=== PATIENT | male | born 1960 | race African-American/Black ===

== ENCOUNTER → 2020-05-03 | Emergency (ER) | payer MEDICARE, MEDICAID ==
[~2020-05-03] VITALS: Ht 180.3 cm; Wt 81.6 kg
[2020-05-03 21:03] LABS: Basophils # (auto) 0.1 10 ^3/uL (0-0.2); Basophils % (auto) 1.3 % (0.0-2.0); Eosinophils # (auto) 0.1 10 ^3/uL (0-0.8); Eosinophils % (auto) 2.4 % (0.0-7.0); Hemoglobin 11.1 g/dL (13.5-17.5); Lymphocytes # (auto) 1.5 10 ^3/uL (0.4-5.4); Lymphocytes % (auto) 37.7 % (10.0-50.0); Mean Corpuscular Hgb Conc. 32.6 g/dL (32.0-36.0); Mean Corpuscular Volume 92.1 fL (80.0-100.0); Monocytes # (auto) 0.5 10 ^3/uL (0-1.3); Monocytes % (auto) 12.9 % (0.0-12.0); Neutrophils # (auto) 1.9 10 ^3/uL (1.6-8.6); Neutrophils % (auto) 45.7 % (37.0-80.0); Nucleated Red Blood Cells % 0.1 %; Platelet Count (auto) 312 10^3/uL (140-450); White Blood Cell 4.1 10^3/uL (4.4-10.8)
[2020-05-03 21:04] LABS: Red Cell Distribution Width 21.8 % (11.8-14.3)
[2020-05-03 21:27] LABS: Albumin 3.8 g/dL (3.4-5.0); BUN/Creatinine Ratio 18.1; Calcium 8.1 mg/dL (8.5-10.1); Potassium 4.1 mmol/L (3.5-5.1)
[2020-05-03 21:29] LABS: Bilirubin, Total 0.4 mg/dL (0.2-1.0); Total Protein 8.1 g/dL (6.4-8.2)
[2020-05-04 04:43] VITALS: BP 144/68
== END | disposition home or self-care (01) ==
LOC: ER 19:45
DX: F10.129 Alcohol abuse with intoxication, unspecified (principal); I10 Essential (primary) hypertension; F12.10 Cannabis abuse, uncomplicated; Z59.0 Homelessness; Y90.9 Presence of alcohol in blood, level not specified
CPT/HCPCS: 36415; 80053; 80320; 85025

== ENCOUNTER 2020-09-02 13:49 | Inpatient (IN) | payer OTHER, MEDICAID ==
[~2020-09-02] VITALS: Ht 175.3 cm; Wt 72.8 kg
[2020-09-02 14:27] LABS: Basophils # (auto) 0 10 ^3/uL (0-0.2); Eosinophils # (auto) 0.1 10 ^3/uL (0-0.8); Eosinophils % (auto) 2.3 % (0.0-7.0); Hematocrit 35.3 % (41.0-53.0); Hemoglobin 11.2 g/dL (13.5-17.5); Lymphocytes # (auto) 1.2 10 ^3/uL (0.4-5.4); Lymphocytes % (auto) 30.4 % (10.0-50.0); Mean Corpuscular Hemoglobin 30.8 pg (28.0-32.0); Mean Corpuscular Hgb Conc. 31.8 g/dL (32.0-36.0); Mean Corpuscular Volume 96.8 fL (80.0-100.0); Monocytes # (auto) 0.4 10 ^3/uL (0-1.3); Neutrophils # (auto) 2.2 10 ^3/uL (1.6-8.6); Neutrophils % (auto) 56.3 % (37.0-80.0); Nucleated Red Blood Cells % 0.1 %; Platelet Count (auto) 336 10^3/uL (140-450); Red Blood Cells 3.65 10^6/uL (4.5-5.90); Red Cell Distribution Width 17.6 % (11.8-14.3)
[2020-09-02 14:28] LABS: Urine Bacteria FEW /hpf (None Seen); Urine Blood Negative /uL (Negative); Urine Specific Gravity 1.016 (1.001-1.035); Urine WBC 1 /hpf (0 - 3)
[2020-09-02 14:43] LABS: Albumin 4.4 g/dL (3.4-5.0); Anion Gap 10 (5-15); Blood Alcohol < 3.0 mg/dL (0-5); Blood Urea Nitrogen 12 mg/dL (7-18); Carbon Dioxide 22 mmol/L (21-32); Chloride 105 mmol/L (98-107); Glucose 77 mg/dL (74-106); Potassium 3.8 mmol/L (3.5-5.1); Sodium 137 mmol/L (136-145)
[2020-09-02 14:46] LABS: Alanine Aminotransferase 27 U/L (16-61); Alkaline Phosphatase 84 U/L (45-117); Aspartate Aminotransferase 32 U/L (15-37); BUN/Creatinine Ratio 10.8; Bilirubin, Total 0.5 mg/dL (0.2-1.0); GFR African American 87 mL/min; GFR Non-African American 72 mL/min; Total Protein 8.6 g/dL (6.4-8.2)
[2020-09-02 14:48] LABS: Amphetamine Screen, Urine POSITIVE (NEGATIVE); Barbiturate Scree,Urine NEGATIVE (NEGATIVE); Benzodiazephine Screen, Urine POSITIVE (NEGATIVE); Cannabinoid Screen, Urine POSITIVE (NEGATIVE); Cocaine Screen, Urine NEGATIVE (NEGATIVE); Opiate Scree,Urine NEGATIVE (NEGATIVE); Phencyclidine Screen, Urine NEGATIVE (NEGATIVE)
[2020-09-02] MEDS ORDERED: FOLIC ACID 1 MG, MULTIPLE VITAMIN 10 ML, MAGNESIUM SULF SDV 50% 8 MEQ, THIAMINE INJ 100... INJ STA ×5 (14:58)
[2020-09-02] MEDS ORDERED: ONDANSETRON HCL 4 MG/2 ML VIAL IV ONE (15:00)
[2020-09-02] MEDS ORDERED: SODIUM CHLORIDE 0.9% 1,000 ML IVB ONE (15:00)
[2020-09-02] MEDS ORDERED: THIAMINE 100mg/ml INJ (200mg/2ml VIAL) IV ONE (15:00)
[2020-09-02 15:56] LABS: Magnesium 1.6 mg/dL (1.6-2.6)
[2020-09-02] MEDS: hydrALAZINE HCL 25 MG TAB PO SCH (23:20)
[2020-09-02] MEDS: amLODIPine BESYLATE 5 MG TAB PO SCH (23:20)
[2020-09-03] MEDS ORDERED: DOCUSATE SOD 100 MG CAP PO PRN (00:15)
[2020-09-03] MEDS ORDERED: ONDANSETRON HCL 4 MG/2 ML VIAL IV PRN (00:15)
[2020-09-03] MEDS ORDERED: ACETAMINOPHEN 325 MG TAB PO PRN (00:15)
[2020-09-03] MEDS ORDERED: NITROGLYCERIN 0.4 MG SL TAB SL PRN (00:15)
[2020-09-03] MEDS ORDERED: MORPHINE SULF INJ 2 MG/ML SYRINGE 1ML IV PRN (00:15)
[2020-09-03] MEDS: SODIUM CHLORIDE 0.9% 1,000 ML IV SCH ×2 (00:32→16:04)
[2020-09-03] MEDS: hydrALAZINE HCL 25 MG TAB PO SCH ×3 (06:00→22:10)
[2020-09-03 08:31] LABS: Basophils # (auto) 0 10 ^3/uL (0-0.2); Basophils % (auto) 0.9 % (0.0-2.0); Eosinophils # (auto) 0.1 10 ^3/uL (0-0.8); Eosinophils % (auto) 2.6 % (0.0-7.0); Hematocrit 33.7 % (41.0-53.0); Hemoglobin 11.1 g/dL (13.5-17.5); Lymphocytes # (auto) 0.9 10 ^3/uL (0.4-5.4); Lymphocytes % (auto) 21.3 % (10.0-50.0); Mean Corpuscular Hemoglobin 31.7 pg (28.0-32.0); Mean Corpuscular Hgb Conc. 32.9 g/dL (32.0-36.0); Mean Corpuscular Volume 96.3 fL (80.0-100.0); Monocytes # (auto) 0.4 10 ^3/uL (0-1.3); Monocytes % (auto) 9.3 % (0.0-12.0); Neutrophils # (auto) 2.6 10 ^3/uL (1.6-8.6); Neutrophils % (auto) 65.9 % (37.0-80.0); Platelet Count (auto) 257 10^3/uL (140-450); Red Cell Distribution Width 17.5 % (11.8-14.3)
--- NOTE | 2020-09-03 09:00 | NUR ---
Telemetry admit from [facility] admitted to Telemetry unit after SBAR received. Patient oriented to ELY lilly RN, unit, room 291 A and unit policies regarding patient care and visiting hours. Patient now on continuous telemetry monitoring, tele box # 49 and telemetry reading on arrival to unit is SR 89. Patient weighed by bedscale and encouraged to call if they need something. All questions and concerns addressed, patient verbalized understanding. POM taken to pharmacy
[2020-09-03 09:10] LABS: Albumin 3.6 g/dL (3.4-5.0); Calcium 8.3 mg/dL (8.5-10.1); Potassium 3.8 mmol/L (3.5-5.1)
[2020-09-03 09:13] VITALS: BP 145/84
[2020-09-03 09:14] LABS: Bilirubin, Total 0.6 mg/dL (0.2-1.0); Total Protein 6.9 g/dL (6.4-8.2)
[2020-09-03] MEDS: amLODIPine BESYLATE 5 MG TAB PO SCH (09:38)
[2020-09-03] MEDS: FOLIC ACID 1 MG TAB PO SCH (09:38)
[2020-09-03] MEDS: PANTOPRAZOLE 40 MG/10 ML VIAL INJ IV SCH (09:38)
[2020-09-03] MEDS: THIAMINE HCL 100 MG TAB PO SCH (09:38)
[2020-09-03] MEDS: ENOXAPARIN SOD 40 MG/0.4 ML SYRINGE SC SCH (09:39)
[2020-09-03] MEDS: HYDROcodone-ACET 5/325MG TAB PO PRN ×2 (09:39→18:22)
[2020-09-03] MEDS ORDERED: AML5T PO (12:48)
[2020-09-03] MEDS ORDERED: TRAZ50TA2 PO (12:48)
[2020-09-03] MEDS ORDERED: LISI-646 PO (12:48)
[2020-09-03] MEDS ORDERED: MULT-470 OR (12:48)
[2020-09-03 14:47] VITALS: BP 151/80
--- NOTE | 2020-09-03 15:55 | NUR ---
Sharon KO AT BEDSIDE updated on the patient status, Plan of care was discussed with the patient and he verbalized understanding. New orders received for clear liquid diet. Order read back and verified.
[2020-09-03 16:53] VITALS: BP 143/84
[2020-09-03 22:15] VITALS: BP 143/82
[2020-09-04 05:30] VITALS: BP 148/79
[2020-09-04] MEDS: hydrALAZINE HCL 25 MG TAB PO SCH ×4 (05:55→22:19)
[2020-09-04 06:55] LABS: Basophils # (auto) 0 10 ^3/uL (0-0.2); Basophils % (auto) 0.5 % (0.0-2.0); Eosinophils # (auto) 0.2 10 ^3/uL (0-0.8); Eosinophils % (auto) 4.3 % (0.0-7.0); Hematocrit 37.9 % (41.0-53.0); Lymphocytes % (auto) 22.7 % (10.0-50.0); Mean Corpuscular Hemoglobin 30.7 pg (28.0-32.0); Mean Corpuscular Hgb Conc. 31.8 g/dL (32.0-36.0); Mean Corpuscular Volume 96.5 fL (80.0-100.0); Monocytes # (auto) 0.4 10 ^3/uL (0-1.3); Monocytes % (auto) 10.4 % (0.0-12.0); Neutrophils # (auto) 2.6 10 ^3/uL (1.6-8.6); Neutrophils % (auto) 62.1 % (37.0-80.0); Nucleated Red Blood Cells % 0.1 %; Platelet Count (auto) 284 10^3/uL (140-450); Red Blood Cells 3.93 10^6/uL (4.5-5.90); Red Cell Distribution Width 17.3 % (11.8-14.3); White Blood Cell 4.3 10^3/uL (4.4-10.8)
--- NOTE | 2020-09-04 07:10 | NUR ---
OPENING SHIFT NOTE Assumed care of patient from car shifter RN. Patient is alert and oriented x4, patient reports ankle and knee joint pain 6/10, will medicate as ordered. He was updated on the plan of care and verbalized understanding. Bed is locked, in the lowest position, side rails up x2 and call light is in reach. He was encouraged to call for assistance as needed.
[2020-09-04 07:14] LABS: Albumin 3.6 g/dL (3.4-5.0); Calcium 8.8 mg/dL (8.5-10.1); Potassium 3.7 mmol/L (3.5-5.1)
--- NOTE | 2020-09-04 07:18 | NUR ---
closing note pt is resting in semi fowlers with HOB at 30 degrees. no s/s of pain or discomfort at this time. Endorsed care to day shift TAMMIE Hogan.
[2020-09-04 07:19] LABS: BUN/Creatinine Ratio 4.8; Bilirubin, Total 0.5 mg/dL (0.2-1.0); Total Protein 7.1 g/dL (6.4-8.2)
[2020-09-04] MEDS: HYDROcodone-ACET 5/325MG TAB PO PRN ×3 (07:40→22:19)
[2020-09-04 09:00] VITALS: BP 160/88
[2020-09-04] MEDS: SODIUM CHLORIDE 0.9% 1,000 ML IV SCH ×2 (09:35→13:59)
[2020-09-04] MEDS: PANTOPRAZOLE 40 MG/10 ML VIAL INJ IV SCH (10:39)
[2020-09-04] MEDS: FOLIC ACID 1 MG TAB PO SCH (10:40)
[2020-09-04] MEDS: ENOXAPARIN SOD 40 MG/0.4 ML SYRINGE SC SCH (10:40)
[2020-09-04] MEDS: THIAMINE HCL 100 MG TAB PO SCH (10:40)
[2020-09-04] MEDS: amLODIPine BESYLATE 5 MG TAB PO SCH (10:40)
[2020-09-04 13:00] VITALS: BP 137/82
--- NOTE | 2020-09-04 14:09 | NUR ---
Assessment Social Service consult regarding patient being homeless. Patient states he stays in hotels and when he runs out of money he stays in the streets. Patient states he does not talk to his family and does not want anything to do with them. Patient informed me he receives an amount of 714 from [employer] Patient states he will continue to stay in hotels and street upon discharge. Discussed with patient options and resources for placement. Provided information to clothes closet and meal prior to discharge. Patient accepted. Offered patient taxi voucher within 30 miles and Patient agreed. Completed home less assessment and patient signed homeless waiver. Will follow-up and provide intervention as appropriate. Addendum: 09/04/20 at 1411 by BETTY MAYO Amended: Links added.
[2020-09-04 17:00] VITALS: BP 139/80
[2020-09-04] MEDS ORDERED: INDO50CA82 PO (19:44)
--- NOTE | 2020-09-04 20:50 | NUR ---
Hospitalist Spoke with hospitalseth aMdden regarding patient history or GOUT and current flare up. New verbal orders received. 100MG allopurinol PO once now. Orders read back and verified.
[2020-09-04] MEDS ORDERED: ALLOPURINOL 100 MG TAB PO ONE (21:15)
[2020-09-04 22:00] VITALS: BP 144/86
[2020-09-04] MEDS ORDERED: TEMAZEPAM 15 MG CAP PO PRN (22:30)
--- NOTE | 2020-09-04 22:30 | NUR ---
Hospitalist Chano New orders received for sleep aid: Restoril 15mg PO HS for insomnia. Telephone orders read back and verified.
--- NOTE | 2020-09-04 23:00 | NUR ---
Telephone order from Dr Sanders Mechanical Soft Diet. orders read back and verified.
[2020-09-05 05:00] VITALS: BP 131/63
[2020-09-05] MEDS: SUCRALFATE 1 GM/10 ML ORAL SUSP PO SCH ×2 (06:05→11:30)
[2020-09-05] MEDS: hydrALAZINE HCL 25 MG TAB PO SCH ×2 (06:05→14:19)
--- NOTE | 2020-09-05 07:28 | NUR ---
closing note pt is resting in semi fowlers with HOB at thirty degrees. no s/s of distress at this time. endorsed care to day shift RN
[2020-09-05 08:00] VITALS: BP 134/79
[2020-09-05 08:41] VITALS: BP 135/72
[2020-09-05] MEDS: PANTOPRAZOLE 40 MG/10 ML VIAL INJ IV SCH (10:12)
[2020-09-05] MEDS: FOLIC ACID 1 MG TAB PO SCH (10:12)
[2020-09-05] MEDS: THIAMINE HCL 100 MG TAB PO SCH (10:15)
[2020-09-05] MEDS: ENOXAPARIN SOD 40 MG/0.4 ML SYRINGE SC SCH (10:16)
[2020-09-05] MEDS: amLODIPine BESYLATE 5 MG TAB PO SCH (10:16)
[2020-09-05] MEDS: HYDROcodone-ACET 5/325MG TAB PO PRN (10:38)
[2020-09-05 12:35] VITALS: BP 134/79
[2020-09-05 13:01] VITALS: BP 135/72
--- NOTE | 2020-09-05 13:31 | NUR ---
SPOKE WITH DR. TIM REGARDING PATIENT'S RIGHT LEG PAIN SPECIFICALLY THE ANKLE WHICH THE PATIENT STATES "IT'S GOUT", "YESTERDAY, I WAS AHEAD OF THE GAME, BUT IT'S BECAUSE I DIDN'T GET MY MEDICATION. MADE MD AWARE THAT PATIENT IS COMPLAINING THAT HE CANNOT WALK AND HAS CONCERNS ABOUT DISCHARGE SAYING "WHEN I CAME IN I COULD WALK, NOW I CAN'T". MD GAVE NEW ORDERS FOR XRAY. PATIENT WAS INFORMED THAT MD WILL CONTINUE WITH DISCHARGE IF THERE ARE NO ACUTE FINDINGS. PATIENT ALSO SPOKE WITH BETTY GORE WHO INFORMED HIM THAT PLACEMENT IS NOT GUARANTEED BUT RESOURCES WERE PROVIDED TO HIM AND PRIOR TO DISCHARGE HE WOULD HAVE CLOTHES AND FOOD PROVIDED. PATIENT VERBALIZED UNDERSTANDING THAT HE WILL GET AN XRAY OF THE FOOT WELL RE-EDUCATION ON ASPECTS OF HIS PENDING DISCHARGE.
[2020-09-05] MEDS ORDERED: INDOMETHACIN 25 MG CAP PO SCH (14:00)
--- NOTE | 2020-09-05 14:44 | NUR ---
PATIENT INFORMED ME THAT WHEN THE HEARINGS REPORTER CAME TO BEDSIDE HE WAS ON THE PHONE AND SHE WOULD COME BACK. UPON LOOKING XRAY HAS BEEN CANCELLED. THE PATIENT INFORMED ME HE DOES NOT WANT AN XRAY STATING "I KNOW IT'S GOUT", PATIENT IS INFORMING ME HE IS READY TO DISCHARGE. CALLED [employer] SAL[employer] FOR A BUS PASS. SWEATSHIRT PROVIDED PER PATIENT REQUEST (NO OTHER NEEDS AT THIS TIME). OFFERED PATIENT SOMETHING TO EAT AND HE DECLINED.
== END 2020-09-05 15:00 | disposition home health service (06) | DRG 392 ==
LOC: ER 13:49 → TELE 13:50 → TELE-WESTW 09-03 08:47 → TELE 09-04 13:45 → TELE-WESTW 09-04 13:47
PROVIDERS: ADMIT Nurse Practitioner Family; ATTEND Internal Medicine
DX: K29.20 Alcoholic gastritis without bleeding (principal); K56.7 Ileus, unspecified; D61.818 Other pancytopenia; F10.239 Alcohol dependence with withdrawal, unspecified; I10 Essential (primary) hypertension; F15.10 Other stimulant abuse, uncomplicated; D35.02 Benign neoplasm of left adrenal gland; F32.9 Major depressive disorder, single episode, unspecified; F41.9 Anxiety disorder, unspecified; F17.210 Nicotine dependence, cigarettes, uncomplicated; F12.90 Cannabis use, unspecified, uncomplicated; K80.20 Calculus of gallbladder without cholecystitis without obstruction; D35.01 Benign neoplasm of right adrenal gland; Z59.0 Homelessness; Z79.899 Other long term (current) drug therapy; F10.229 Alcohol dependence with intoxication, unspecified; Y90.0 Blood alcohol level of less than 20 mg/100 ml
CPT/HCPCS: 36415; 71045; 74176; 80053; 80307; 80320; 81001; 83690; 83735; 85025; 87493; C9113; G0378; J2405

== ENCOUNTER 2020-10-23 20:13 | Emergency (ER) | payer OTHER, MEDICAID ==
[~2020-10-23] VITALS: Ht 180.3 cm; Wt 79.4 kg
[~2020-10-23 20:13] MED LIST: AML5T PO; INDO50CA82 PO; LISI-646 PO; MULT-470 OR; TRAZ50TA2 PO
[2020-10-23 21:14] VITALS: BP 144/87
[2020-10-23 23:31] LABS: Basophils # (auto) 0 10 ^3/uL (0-0.2); Basophils % (auto) 1.2 % (0.0-2.0); Eosinophils # (auto) 0.1 10 ^3/uL (0-0.8); Eosinophils % (auto) 3.6 % (0.0-7.0); Hematocrit 33.4 % (41.0-53.0); Hemoglobin 10.7 g/dL (13.5-17.5); Lymphocytes # (auto) 1.4 10 ^3/uL (0.4-5.4); Lymphocytes % (auto) 48.4 % (10.0-50.0); Mean Corpuscular Hemoglobin 31.1 pg (28.0-32.0); Mean Corpuscular Hgb Conc. 32.1 g/dL (32.0-36.0); Mean Corpuscular Volume 96.9 fL (80.0-100.0); Monocytes # (auto) 0.3 10 ^3/uL (0-1.3); Monocytes % (auto) 10.6 % (0.0-12.0); Neutrophils # (auto) 1.1 10 ^3/uL (1.6-8.6); Neutrophils % (auto) 36.2 % (37.0-80.0); Nucleated Red Blood Cells % 0.2 %; Platelet Count (auto) 291 10^3/uL (140-450); Red Blood Cells 3.45 10^6/uL (4.5-5.90); Red Cell Distribution Width 16.6 % (11.8-14.3); White Blood Cell 2.9 10^3/uL (4.4-10.8)
[2020-10-23 23:49] LABS: Albumin 3.7 g/dL (3.4-5.0); BUN/Creatinine Ratio 17.8; Calcium 8.4 mg/dL (8.5-10.1); Potassium 4.2 mmol/L (3.5-5.1)
[2020-10-23 23:52] LABS: Bilirubin, Total 0.3 mg/dL (0.2-1.0); Total Protein 7.5 g/dL (6.4-8.2)
== END 2020-10-24 07:11 | disposition home or self-care (01) ==
LOC: ER 20:16
DX: K80.20 Calculus of gallbladder without cholecystitis without obstruction (principal); F10.920 Alcohol use, unspecified with intoxication, uncomplicated; I10 Essential (primary) hypertension; F17.210 Nicotine dependence, cigarettes, uncomplicated; Z79.899 Other long term (current) drug therapy
CPT/HCPCS: 36415; 74176; 80053; 80320; 85025

== ENCOUNTER 2021-08-15 22:31 | Emergency (ER) | payer OTHER, MEDICAID ==
[~2021-08-15] VITALS: Ht 180.3 cm; Wt 74.8 kg
[~2021-08-15 22:31] MED LIST changes: -LISI-646 PO; +LISI20TA28 PO
[2021-08-15 23:41] LABS: White Blood Cell 5.1 10^3/uL (4.4-10.8)
[2021-08-15 23:45] LABS: Basophils # (auto) 0 10 ^3/uL (0-0.2); Basophils % (auto) 0.6 % (0.0-2.0); Eosinophils # (auto) 0 10 ^3/uL (0-0.8); Eosinophils % (auto) 0.9 % (0.0-7.0); Hematocrit 35.7 % (41.0-53.0); Hemoglobin 11.9 g/dL (13.5-17.5); Lymphocytes # (auto) 1.6 10 ^3/uL (0.4-5.4); Lymphocytes % (auto) 30.4 % (10.0-50.0); Mean Corpuscular Hemoglobin 31.5 pg (28.0-32.0); Mean Corpuscular Hgb Conc. 33.2 g/dL (32.0-36.0); Mean Corpuscular Volume 95.1 fL (80.0-100.0); Monocytes # (auto) 0.4 10 ^3/uL (0-1.3); Neutrophils # (auto) 3.1 10 ^3/uL (1.6-8.6); Neutrophils % (auto) 61.1 % (37.0-80.0); Nucleated Red Blood Cells % 0.3 %; Red Blood Cells 3.76 10^6/uL (4.5-5.90); Red Cell Distribution Width 18.8 % (11.8-14.3)
[2021-08-16] LABS: Albumin 3.4 g/dL (3.4-5.0); BUN/Creatinine Ratio 14.8; Calcium 8.7 mg/dL (8.5-10.1); Potassium 3.4 mmol/L (3.5-5.1)
[2021-08-16 00:03] LABS: Bilirubin, Total 0.3 mg/dL (0.2-1.0); Total Protein 8.9 g/dL (6.4-8.2)
[2021-08-16] MEDS ORDERED: HYDROcodone-ACET 5/325MG TAB PO ONE (01:15)
[2021-08-16] MEDS ORDERED: LABETALOL HCL 5 MG/ML 4ML SYRINGE IV ONE (05:00)
[2021-08-16 06:10] VITALS: BP 186/98
== END 2021-08-16 06:23 | disposition home or self-care (01) ==
LOC: ER 22:33
DX: M10.9 Gout, unspecified (principal); I10 Essential (primary) hypertension; F17.210 Nicotine dependence, cigarettes, uncomplicated; Z59.00 Homelessness unspecified; Z79.899 Other long term (current) drug therapy
CPT/HCPCS: 36415; 80053; 83605; 85025; 96374; 99285; J3490

== ENCOUNTER 2021-08-16 10:49 | Emergency (ER) | payer OTHER, MEDICAID ==
[~2021-08-16] VITALS: Ht 170.2 cm; Wt 72.6 kg
[2021-08-16] MEDS ORDERED: cloNIDine HCL 0.1 MG TAB PO ONE (11:15)
[2021-08-16] MEDS ORDERED: LORazepam 0.5 MG TAB PO ONE (11:45)
[2021-08-16] MEDS ORDERED: amLODIPine BESYLATE 5 MG TAB PO ONE (12:30)
[2021-08-16 15:15] VITALS: BP 128/85
== END 2021-08-16 15:40 | disposition home or self-care (01) ==
LOC: ER 10:49 → EDBD 10:49 → ER 15:35
DX: I16.0 Hypertensive urgency (principal); M10.9 Gout, unspecified; F10.230 Alcohol dependence with withdrawal, uncomplicated; F17.210 Nicotine dependence, cigarettes, uncomplicated; Z59.00 Homelessness unspecified; Z79.899 Other long term (current) drug therapy; Y90.9 Presence of alcohol in blood, level not specified
CPT/HCPCS: 93005

== ENCOUNTER 2021-09-09 20:49 | Emergency (ER) | payer OTHER, MEDICAID ==
[~2021-09-09] VITALS: Ht 180.3 cm; Wt 77.1 kg
[2021-09-09 20:49] VITALS: BP 164/89
== END 2021-09-10 08:18 | disposition left against medical advice (07) ==
LOC: ER 20:51
DX: S46.001A Unspecified injury of muscle(s) and tendon(s) of the rotator cuff of right shoulder, initial encounter (principal); I10 Essential (primary) hypertension; F31.9 Bipolar disorder, unspecified; F17.210 Nicotine dependence, cigarettes, uncomplicated; F12.10 Cannabis abuse, uncomplicated; F15.10 Other stimulant abuse, uncomplicated; Z59.00 Homelessness unspecified; X58.XXXA Exposure to other specified factors, initial encounter; Y93.89 Activity, other specified; Y92.89 Other specified places as the place of occurrence of the external cause; Y99.8 Other external cause status
CPT/HCPCS: 73030